=== PATIENT | male | born 1940 ===

== ENCOUNTER 2018-05-14 13:14 | Outpatient (CLI) | payer MEDICARE | END 2018-05-14 13:15 | disposition home or self-care (01) | LOC: C.PAT 13:14 | DX: R94.39 Abnormal result of other cardiovascular function study (principal) ==

== ENCOUNTER 2018-05-20 09:34 | Day surgery (SDC) | payer MEDICARE ==
[2016-04-04 11:06] VITALS: BMI 19.5
[2018-05-20] MEDS ORDERED: Verapamil 2 ML ONE (11:38)
[2018-05-20] MEDS ORDERED: Midazolam 2 MG/2 ML VIAL ONE (11:38)
[2018-05-20] MEDS ORDERED: Lidocaine 2% MPF (5 ml) Inj ONE (11:38)
[2018-05-20] MEDS ORDERED: Iodixanol 320 MG/ML 200 ML BOTTLE IV ONE (11:39)
--- NOTE | 2018-05-20 23:31 | CARDCATH ---
PROCEDURE DATE: 05/20/2018 INDICATION: Mr. Medley is a 77-year-old male with past medical history significant for hypertension, diabetes, hyperlipidemia. The patient was brought to the catheterization laboratory technician for evaluation of abnormal stress test, underwent a cardiac catheterization via left radial arterial approach. PROCEDURE PERFORMED: Left heart catheterization with selective left and right coronary angiograms, left ventriculogram, 6-Grenadian left radial artery access, wrist band for hemostasis. ANGIOGRAPHIC FINDINGS: RCA is a large sized vessel, has three tandem lesions, 70%, 80% and 80% in the mid RCA. Right dominant circulation, distal RCA has a 60% stenosis. Left main is a large sized vessel with bifurcation to left anterior descending and left circumflex coronary artery. Left anterior descending has proximal 55% stenosis, gives off medium sized diagonal branches and proximal 60% stenosis. Left circumflex runs in the AV groove, gives off large obtuse marginal branch. Mid circumflex has 75% stenosis. Distal circumflex has 80% stenosis, small sized vessel. Left ventricular ejection fraction is 60% to 65%. EDP was 17. IMPRESSION: Severe two-vessel coronary artery disease. RECOMMENDATIONS: The patient is to undergo a staged intervention of the left circumflex and RCA next week at [place]. Keep the patient on dual antiplatelet therapy, beta-blockers, statin, nitrates. Guideline directed therapy for CAD. Thank you Dr. Cantor for letting me to participate in the care of your patient. Nam Abbasi MD cc: Moody Cantor MD
== END 2018-05-20 16:00 | disposition home or self-care (01) ==
LOC: C.CATHLAB 09:34
PROVIDERS: ATTEND Internal Medicine Interventional Cardiology
DX: I25.10 Atherosclerotic heart disease of native coronary artery without angina pectoris (principal); I10 Essential (primary) hypertension; E11.9 Type 2 diabetes mellitus without complications; E78.5 Hyperlipidemia, unspecified

== ENCOUNTER 2018-07-13 09:15 | Outpatient (CLI) | payer MEDICARE | END 2018-07-13 09:16 | disposition home or self-care (01) | LOC: C.PAT 09:15 | DX: I25.118 Atherosclerotic heart disease of native coronary artery with other forms of angina pectoris (principal) ==

== ENCOUNTER 2018-07-15 07:34 | Day surgery (SDC) | payer MEDICARE ==
[2016-04-04 11:06] VITALS: BMI 19.5
== END 2018-07-15 10:00 | disposition hospice, home (50) ==
LOC: C.CATHLAB 07:34
PROVIDERS: ATTEND Internal Medicine Interventional Cardiology
DX: I25.118 Atherosclerotic heart disease of native coronary artery with other forms of angina pectoris (principal); Z53.9 Procedure and treatment not carried out, unspecified reason